=== PATIENT | female | born 1935 | race Caucasian/White ===

== ENCOUNTER 2017-01-08 06:51 | Day surgery (SDC) | payer MEDICARE, OTHER ==
[~2017-01-08 06:51] MED LIST: RINGER'S SOLUTION,LACTATED 1,000 ML IV PRN; ceFAZolin SODIUM 1 GM in DEXTROSE 5 % IN WATER 100 ML IV PRN
[2017-01-08] MEDS ORDERED: RINGER'S SOLUTION,LACTATED 1,000 ML IV ONE ×2 (07:41→09:35)
[2017-01-08] MEDS ORDERED: LIDOCAINE HCL/EPINEPHRINE 50 ML VIAL IJ ONE ×2 (08:35)
--- NOTE | 2017-01-08 12:10 | OR ---
Operative Report - Dictated Report Narrative: DATE OF PROCEDURE: 01/08/2017 INDICATION: 81-year-old old with prior hysterectomy and suburethral sling placement presents with severe post hysterectomy vaginal vault prolapse, cystocele, and rectocele PREOPERATIVE DIAGNOSIS: Symptomatic post hysterectomy vaginal vault prolapse, severe cystocele, rectocele POSTOPERATIVE DIAGNOSIS: Same PROCEDURE: Anterior and posterior colpoperineorrhaphy, bilateral uterosacral ligament fixation, cystoscopy SURGEON: Nancy Betancourt D.O. HEALTHCARE MANAGER: OR staff ANESTHESIA: General ESTIMATED BLOOD LOSS: 50 mL URINE OUTPUT: 100 mL FLUID REPLACEMENT: 1400 mL FINDINGS: Vaginal apex prolapsed custodial to the introitus, cystocele protruding 3 cm past the introitus, rectocele 2 cm from the introitus, lax perineal body. Multiple 1-2 mm white papular lesions within the bladder scattered on the posterior wall. Extensive trabeculation of the anterior bladder wall. SPECIMEN(S): None TECHNIQUE: The patient was taken to the operating room and placed in dorsal lithotomy position after adequate general anesthesia and sterile prep were performed. 1 g of Ancef was given preoperatively. A Melcher Dallas retractor was placed over the perineum. The vaginal mucosa was grasped at the introitus at the 4 and 8 o'clock positions and a wolf-shaped resection of peritoneal and vaginal mucosa was removed. The vaginal mucosal was dissected from the underlying rectovaginal fascia to the vaginal apex and laterally to the levator ani lateral border on either side. The uterosacral ligaments were identified on either side and noted to be securely attached at their proximal origins. Using the Capio device, an 0 Prolene suture was placed through the proximal end of the right uterosacral ligament at the level of the ischial spine. The exact same was done on the patient's left side. The sutures were tagged and held for later use. The rectovaginal fascia was plicated in the midline with a running 0 Vicryl suture. Using the same suture, the perineal body was reapproximated. Excess vaginal mucosa was excised and attention was turned to the anterior segment. A Breen catheter was inserted to drain the bladder and to determine the level of the urethrovesical junction. The vaginal mucosa was grasped at the UV junction and at the vaginal apex. Scalpel was used to make a linear incision through the vaginal mucosa of the bladder. Using sharp and blunt dissection, the vaginal mucosa was dissected laterally from the underlying bladder. Using an 0 Vicryl suture, the bladder was plicated in midline with a running stitch. A second imbricating stitch was placed over the previous one from the UV junction to the vaginal apex. Excess vaginal mucosa was excised and the vaginal mucosa was closed with a running 2-0 Vicryl. Prior to closing the vaginal mucosa, the uterosacral ligament suture was placed through the intrafascial tissue of the anterior segment of the vaginal cuff. The vaginal mucosa of the posterior floor of the vagina was closed custodial with a running 2- 0 Vicryl suture. At this point the uterosacral ligament ollie stitches were tied, bringing the vaginal apex up to the level of the ischial spine. The sutures were cut and the remainder of the vaginal mucosa on the posterior floor was closed. The bladder was drained and the Breen catheter was removed. Cystoscopy was performed, noting urine spurting freely from both ureteral orifices. Sponge, lap, instrument, and needle count were correct x 2. DISPOSITION: The patient was transferred to postanesthesia care unit in good condition.
[2017-01-08] MEDS ORDERED: MORPHINE SULFATE 2 MG/ML DISP.SYRIN IV PRN (13:08)
[2017-01-08] MEDS ORDERED: IBUPROFEN 800 MG TABLET PO PRN (13:09)
[2017-01-08 17:13] VITALS: BP 162/71
== END 2017-01-08 06:52 | disposition home or self-care (01) ==
LOC: AMB 06:51
PROVIDERS: ATTEND Obstetrics & Gynecology
PROC: 0WQ Anatomical Regions, General, Repair (ICD-10-PCS; 2017-01-08)
PROC: 0JQC0ZZ Repair Pelvic Region Subcutaneous Tissue and Fascia, Open Approach (ICD-10-PCS; principal; 2017-01-08 08:00)
PROC: 0JQC0ZZ Repair Pelvic Region Subcutaneous Tissue and Fascia, Open Approach (ICD-10-PCS; 2017-01-08 08:00)
DX: N99.3 Prolapse of vaginal vault after hysterectomy (principal); I10 Essential (primary) hypertension; E78.5 Hyperlipidemia, unspecified; E03.9 Hypothyroidism, unspecified; Z68.25 Body mass index [BMI] 25.0-25.9, adult

== ENCOUNTER 2017-04-16 11:04 | Day surgery (SDC) | payer MEDICARE, OTHER ==
--- NOTE | 2017-04-16 13:17 | OR ---
Operative Report - Dictated Report Narrative: Location: Main OR Anesthesia: None Preoperative Diagnosis: Previously seen bladder lesions during female organs surgery Postoperative Diagnosis: Trabeculated bladder, no abnormal lesions Procedure: #1 flexible cystoscopy with washing for cytology and micro-/culture Indications: 82-year-old female whom underwent gynecologic procedure and account clerk performed cystoscopy at the time. There was a picture of some lesions in the bladder did not look overly concerning but obviously on the 2-D picture no way to know. Presents today after urinalysis was evaluated and normal and elected to proceed with repeat flexible cystoscopy in order for me to assess lesions make sure not concerning and not worthy of biopsy. Description: Consent obtained. Placed in the frog-leg position. Prepped and draped. Time-out taken . Scope inserted into the urethra and navigated to the bladder with ease. Cystoscopy revealed a fairly heavily trabeculated bladder for female but complete emptying. Bladder was filled nath cystoscopy carried out without tumor stones or suspicious lesions. The lesions seen on prior 2-D picture were not present today. Both ureters were in normal location effluxing clear urine. Washing was obtained sent for cytology and micro-/culture. Retroflexion revealed a normal bladder neck without any lesions at the bladder neck. Urethra coapted well and no urethral abnormalities. EBL: 0 Specimen: Washing for cytology and micro-/culture Condition: tolerate procedure Important Findings: Other than bladder trabeculation no concerning lesions. She does have some overactivity but it is tolerable. FOLLOW UP: 12 months with UA/ultrasound/BMP. Sooner if trouble. We'll follow -up on urinalysis and cytology and if normal should be good to go. If any abnormalities may need change game plan
[2017-04-16 13:42] VITALS: BP 120/74
== END 2017-04-16 11:05 | disposition home or self-care (01) ==
LOC: AMB 11:04
PROVIDERS: ATTEND Urology
PROC: 3E1K88X Irrigation of Genitourinary Tract using Irrigating Substance, Via Natural or Artificial Opening Endoscopic, Diagnostic (ICD-10-PCS; 2017-04-16)
PROC: 0TJB8ZZ Inspection of Bladder, Via Natural or Artificial Opening Endoscopic (ICD-10-PCS; principal; 2017-04-16 14:15)
DX: D49.4 Neoplasm of unspecified behavior of bladder (principal); N39.3 Stress incontinence (female) (male); I10 Essential (primary) hypertension; E78.5 Hyperlipidemia, unspecified; E03.9 Hypothyroidism, unspecified; D64.9 Anemia, unspecified; Z68.23 Body mass index [BMI] 23.0-23.9, adult

== ENCOUNTER 2020-01-04 04:43 | Inpatient (IN) ==
--- NOTE | 2020-01-04 04:54 | ERNOTE ---
Hip Pain HPI - Narrative Narrative: Patient got up to go to the bathroom she reached to push the door and missed falling onto her left hip. Her was able to get her up onto a chair but she is unable to fully bear weight on the left side. She was brought in by EMS they state they found that her O2 sats were 88% on room air so they applied 2 L per nasal cannula. In route they gave her 30 of Toradol and 50 mcg of fentanyl IV. - General Time Seen by Provider: 01/04/20 04:47 Source: patient Exam Limitations: no limitations - History of Present Illness Initial Comments: Past medical history: Rheumatoid arthritis, hypertension, hyperlipidemia, breast cancer, hypothyroid. Past surgical history: Mastectomy, hysterectomy, total knee replacement bilateral Timing/Duration: just prior to arrival Severity: moderate Hip Pain Location: hip (L) Method of Injury/Prior Injury: fell Modifying Factors - (Improves): Reports: immobilization Modifying Factors - (Worsens): Reports: movement Associated Symptoms: denies symptoms - Immun/Allergies/Home Medications Immunization: IMMUNIZATION HX Immunizations Up to Date Yes History of Influenza Vaccine Yes Hx Pneumococcal Vaccination Yes Allergies/Adverse Reactions: Allergies Allergy/AdvReac Type Severity Reaction Status Date / Time No Known Allergies Allergy Verified 12/30/19 13:56 Home Medications: Ambulatory Orders Medication Instructions Recorded folic acid 1 mg tablet 1 mg PO DAILY #90 tab 01/30/18 methotrexate sodium 2.5 mg tablet 7.5 mg PO Q7D tab 04/27/18 felodipine 10 mg tablet,extended 10 mg PO DAILY #90 tab 12/13/19 release 24 hr fenofibrate nanocrystallized 145 145 mg PO DAILY #90 tab 12/13/19 mg tablet levothyroxine 50 mcg tablet 50 mcg PO DAILY #90 tab 12/13/19 lisinopril 10 mg tablet 10 mg PO DAILY #90 tab 12/13/19 Review of Systems - Review of Systems Constitutional: Absent: diaphoresis, fatigue, fever EENTM: Absent: nose congestion, sore throat Respiratory: Absent: short of breath Cardiology: Absent: chest pain Gastrointestinal/Abdominal: Absent: abdominal pain, diarrhea, nausea, vomiting Genitourinary: Absent: dysuria Musculoskeletal: Absent: back pain Skin: Absent: change in color, rash Neurological: Absent: dizziness/light-headness, headache Endocrine: Absent: excessive sweating Pain Exam - Physical Exam General Appearance: Present: WD/WN, no apparent distress Eyes, Ears, Nose, Throat Exam: Present: normal ENT inspection Neck Exam: Present: non-tender, full range of motion Cardiovascular/Respiratory: Present: regular rate, rhythm, no M/R/G Gastrointestinal/Abdominal: Present: normal bowel sounds, non tender Extremity Exam: Present: pelvis stable, bony-point tenderness - Left greater trochanter, pain with movement - Left hip, unable to bear weight, other - Good pedal pulses in left leg Neurologic: Present: gimp tacker II-XII nml as tested, no motor/sensory deficits Skin Exam: Present: normal color, warm/dry ED Progress - PROGRESS/REASSESSMENT Progress Note-Subjective: 01/04/20 06:[address] Chaves and after an additional view of the hip he agreed to have the patient admitted to medicine and consult him for surgical intervention. I spoke with Dr. Camacho, the patient's PCP, she agrees to admit the patient for surgical clearance. - VITAL SIGNS Patient's Vital Signs:: I have reviewed the patient's vital signs. - RESULTS AND ORDERS Patient's Lab Results:: I have reviewed the patient's lab results. Results and Orders: 01/04/20 05:53 Laboratory Tests 01/04/20 05:35 WBC 10.7 H Hgb 12.1 L Hct 37.1 Plt Count 359 01/04/20 07:01 Laboratory Tests 01/04/20 05:35 Sodium 140 Potassium 3.8 Chloride 107 H BUN 22 Creatinine 1.01 Est GFR (Non-Af Amer) 56 L D Random Glucose 145 H Calcium 9.9 Total Bilirubin 0.3 AST 25 ALT 35 - EKG EKG #1 EKG: NSR, RBBB, nonspecific ST T wave chg, other - minimal changes from 12/20/16 EKG Read: Interp. by me - X-Ray X-Ray #1 XRAY: hip X-Ray Interpretation: Interp. by me X-Ray Comments: Mildly displaced intertrochanteric fracture of the left hip. Moderate degeneration of the hip joint X-Ray #2 XRAY: chest X-Ray Interpretation: Interp. by me X-Ray Comments: No infiltrate or effusions. Cardiac silhouette appears normal. Bony elements intact. No pneumothorax X-Ray #3 XRAY: hip X-Ray Interpretation: Interp. by me X-Ray Comments: Dr. Chaves requested a AP with traction due to the significant external rotation the patient was holding the hip in. AP view with slight traction shows a comminuted surgical neck fracture Departure - Departure Clinical Impression: Hip fracture, left Qualifiers: Encounter type: initial encounter Fracture type: closed Qualified Code(s): S72.002A - Fracture of unspecified part of neck of left femur, initial encounter for closed fracture Disposition: Still a patient Condition: Good Past Medical History - PMH PMH: Hx Anesthesia Reactions No
[2020-01-04 05:39] LABS: Hematocrit 37.1 % (37.0-47.0); Hemoglobin 12.1 gm/dL (12.5-16.0); Mean Cell Volume 95.9 fl (78-100); Mean Corpuscular Hemoglobin 31.3 pg (27-31); Mean Corpuscular Hgb Conc 32.6 g/dl (32-36); Neutrophil # 7.9 K/mm3 (1.3-6.0); Neutrophil % 74.1 % (42-75.0); Platelet Count 359 K/mm3 (150-450); Red Blood Count 3.87 M/mm3 (4.2-5.4); Red Cell Distribution Width 13.4 % (11.5-14.0); White Blood Count 10.7 K/mm3 (4.0-10.5)
[2020-01-04] MEDS ORDERED: ONDANSETRON HCL/PF 2 MG/ML VIAL IV ONE (05:42)
[2020-01-04] MEDS ORDERED: MORPHINE SULFATE 2 MG/ML DISP.SYRIN IV ONE ×2 (05:42→06:27)
[2020-01-04 05:53] LABS: Albumin * 3.7 gm/dl (3.4-5.0); Anion Gap 12.2 mmol/L (6.8-13.8); BUN/Creatinine Ratio 21.8 (9.0-21.6); Bilirubin, Total 0.3 mg/dL (0.0-1.1); Ca. Corrected For Albumin 9.8 mg/dL (8.4-10.2); Calcium * 9.9 mg/dL (7.9-10.9); Carbon Dioxide 24.6 mmol/L (24-32.6); Potassium 3.8 mmol/L (3.4-4.6); Total Protein 6.9 gm/dL (6.2-8.2)
[2020-01-04] MEDS ORDERED: TRANEXAMIC ACID 1,000 MG in NORMAL SALINE 100 ML IV PRN (06:00)
[2020-01-04] MEDS ORDERED: ROPIVACAINE HCL/PF 100 MG, EPINEPHrine 0.2 MG, KETOROLAC TROMETHAMINE 15 MG in NORMAL S... IJ PRN (06:00)
--- NOTE | 2020-01-04 08:25 | CONS ---
- Reason for consultation (1) Hip fracture, left Date of Service: 01/04/20 HPI - General Date of Service: 01/04/20 Narrative: 84-year-old female had a mechanical fall overnight in her home. Patient notes she is a baseline walker with assistance with a cane or walker. She rates her pain at minimal at rest, 7/10 when moving. Patient notes she was brought to the ER she lives with her at home. She notes no other significant radiating factors. She notes no loss of consciousness. She notes she did not hit her head. Is not on any significant blood thinners. She denies any other significant concerns currently. Source: patient - History of Present Illness Allergies/Adverse Reactions: Allergies No Known Allergies Allergy (Verified 12/30/19 13:56) Home Medications: Home Medications Medication Instructions Recorded Last Taken folic acid 1 mg tablet 1 mg PO DAILY #90 tab 01/30/18 Unknown methotrexate sodium 2.5 mg tablet 7.5 mg PO Q7D tab 04/27/18 Unknown felodipine 10 mg tablet,extended 10 mg PO DAILY #90 tab 12/13/19 Unknown release 24 hr fenofibrate nanocrystallized 145 145 mg PO DAILY #90 tab 12/13/19 Unknown mg tablet levothyroxine 50 mcg tablet 50 mcg PO DAILY #90 tab 12/13/19 Unknown lisinopril 10 mg tablet 10 mg PO DAILY #90 tab 12/13/19 Unknown Procedures CATARAC PHACOEMULS/ASPIR (11/28/09) Colonoscopy (05/29/04) INSERT LENS AT CATAR EXT (11/28/09) Inspection of Bladder, Via Natural or Artificial Opening Endoscopic (04/16/17) Irrigation of Genitourinary Tract using Irrigating Substance, Via Natural or Artificial Opening Endoscopic, Diagnostic (04/16/17) Other (04/02/07) Repair Female Perineum, Percutaneous Approach (01/08/17) Repair Pelvic Region Subcutaneous Tissue and Fascia, Open Approach (01/08/17) Ultrasonography of Bladder (03/01/16) Vaginal suspension and fixation (04/02/07) Physical Examination - Exam Vital Signs: Vital Signs - Last Taken Temp 36.7 C 01/04/20 05:18 Pulse 102 H 01/04/20 07:25 Resp 12 01/04/20 07:25 BP 170/73 H 01/04/20 07:25 Pulse Ox 93 01/04/20 07:25 O2 Oxygen Delivery Method Room Air Constitutional: Present: Alert, Oriented x3, Cooperative, No distress Respiratory: Present: no accessory muscle use Extremity: Present: other - LLE--> sensation intact light touch, 4+ plantarflexion dorsiflexion ankle, diffuse tenderness about left hip, no obvious wounds, external rotation deformity, distal capillary refill Skin Exam: Present: normal color, warm/dry Neurologic: Present: normal mood/affect Appearance: Present: appropriate appearance Eye contact: Present: cooperative, good eye contact Thoughts: Present: normal thought pattern - Results and Findings: Lab/Microbiology results last 24 hrs: Abnormal/Pending Laboratory Last 24 HRS 01/04/20 01/04/20 05:35 05:35 WBC 10.7 H RBC 3.87 L Hgb 12.1 L MCH 31.3 H Immature Gran % (Auto) 1.40 H Immature Gran # (Auto) 0.15 H Lymphocytes % 16.5 L Neutrophils # 7.9 H Chloride 107 H Est GFR (Non-Af Amer) 56 L D BUN/Creatinine Ratio 21.8 H Random Glucose 145 H - Assessments/Findings (1) Hip fracture, left Problem: Acute Qualifiers: Encounter type: initial encounter Fracture type: closed Qualified Code(s): S72.002A - Fracture of unspecified part of neck of left femur, initial encounter for closed fracture Plan - Plan Plan: -84 y/o female left femoral neck fracture that is post fall -Discussed with patient conservative or surgical intervention and possible risk versus benefits include but not limited to infection, bleeding, cardiac and stroke risk, implant failure, continued pain, ambulatory status, and inherent risk of surgery. Patient expressed understanding due to her baseline activity level she wishes to proceed with surgical intervention. Patient will undergo a left hip hemiarthroplasty pending medicine clearance. Plan would be to proceed with surgery on 01/04/2020, and less otherwise patient has not been cleared. Patient expressed understanding consent was obtained patient was marked prior to surgical intervention. Patient will continue in the hospital for postoper atively for care.
[2020-01-04] MEDS ORDERED: ACETAMINOPHEN 500 MG TABLET PO PRN ×2 (09:07→13:20)
[2020-01-04] MEDS: FELODIPINE 5 MG TAB.SR.24H PO SCH (09:15)
[2020-01-04] MEDS: PANTOPRAZOLE SODIUM 40 MG in NORMAL SALINE 100 ML IV SCH ×2 (09:15→21:22)
[2020-01-04] MEDS: FENOFIBRATE,MICRONIZED 134 MG CAPSULE PO SCH (09:15)
[2020-01-04] MEDS: LEVOTHYROXINE SODIUM 50 MCG TABLET PO SCH (09:15)
[2020-01-04] MEDS: LISINOPRIL 10 MG TABLET PO SCH (09:15)
[2020-01-04] MEDS: FOLIC ACID 1 MG TABLET PO SCH (09:15)
--- NOTE | 2020-01-04 09:26 | ANES ---
Anesthesia Pre Procedure Eval Vitals/Labs: Last Vital Signs Temp 36.3 C 01/04/20 08:43 Pulse 104 H 01/04/20 08:43 Resp 16 01/04/20 08:43 BP 131/70 01/04/20 08:43 Pulse Ox 93 01/04/20 08:43 HOME MEDICATIONS folic acid 1 mg tablet 1 mg PO DAILY #90 tab 01/30/18 [Last Taken Unknown] methotrexate sodium 2.5 mg tablet 7.5 mg PO Q7D tab 04/27/18 [Last Taken Unknown] felodipine 10 mg tablet,extended release 24 hr 10 mg PO DAILY #90 tab 12/13/19 [Last Taken Unknown] fenofibrate nanocrystallized 145 mg tablet 145 mg PO DAILY #90 tab 12/13/19 [Last Taken Unknown] levothyroxine 50 mcg tablet 50 mcg PO DAILY #90 tab 12/13/19 [Last Taken Unknown] lisinopril 10 mg tablet 10 mg PO DAILY #90 tab 12/13/19 [Last Taken Unknown] Allergies/Adverse Reactions: Allergies Allergy/AdvReac Type Severity Reaction Status Date / Time No Known Allergies Allergy Verified 12/30/19 13:56 - Planned Procedure Planned Procedure: l hip fx Medication List Reviewed:: Yes Allergies Verified: Yes Medical History (Last Reviewed 01/04/20 @ 09:11 by Fred Tripp CRNA) Arthritis Back pain Onset Date: ~03/05/12 Cystocele Onset Date: ~02/2007 midline Goiter multi-nodular H/O cataract Hip pain, left Onset Date: Unknown History of breast cancer Onset Date: ~1971 Hyperlipidemia Hypertension Hypothyroidism Onset Date: ~03/05/12 Joint pain Macular degeneration Nocturia more than twice per night Onset Date: ~10/31/15 Osteoarthritis Onset Date: ~03/05/12 Overactive bladder Onset Date: ~10/31/15 Prolapsed bladder Rheumatoid arthritis Trochanteric bursitis of left hip Onset Date: Unknown Uterine prolapse Vaginal prolapse Onset Date: ~2004 Vaginal vault prolapse, posthysterectomy Onset Date: ~12/02/16 Surgical History (Last Reviewed 01/04/20 @ 09:11 by Fred Tripp CRNA) Deficient knowledge of combined anteroposterior colporrhaphy Onset Date: ~04/02/072006 anterior and 01/08/2017 anterior and posterior H/O breast biopsy Onset Date: ~1997 right breast H/O cataract extraction Onset Date: ~10/31/09 left and 11/28/09 right H/O colonoscopy Onset Date: ~05/29/04 Dr. Wells: normal H/O cystoscopy Onset Date: ~01/08/17 H/O total vaginal hysterectomy Onset Date: ~1986 prolapsed uterus Hemorrhoids Onset Date: ~02/01/09 banding: Bagan x's 2 History of arthroplasty of left knee Onset Date: ~2009 Dr. Fletcher History of arthroplasty of right knee Onset Date: ~2010 Dr. Fletcher History of mastectomy Onset Date: ~1971 1987 History of suburethral sling procedure Onset Date: ~04/02/07 Dr. Betancourt: Bard suburethral utero sacral ligament fixation Onset Date: ~04/02/07 01/08/17 bilateral Family History (Last Reviewed 01/04/20 @ 09:12 by Fred Tripp CRNA) Brother Alive and well Brother , age 79 Diabetes Myocardial infarction Father , age 85 Heart disease Hypertension Mother , age 94 Heart disease - Family Anesthesia History Family History:: no untoward family reactions to anesthesia, no familial bleeding tendencies, no family history of clotting disorders, no family history of premature - Airway/Neck/Teeth Teeth Condition: missing, poor condition Neck Exam: full range of motion Mallampatti Score: 2 Thyromental (T-M) distance: > 6 cm Mandibulo Hyoid distance: > 3 cm - Respiratory Respiratory Physical: lungs clear Smoking Status: Never smoker Sleep Apnea currently treated: No Sleep Apnea by current assessment: No - Cardiovascular Cardiac History: hypertension Tolerate Activity: Poor Heart Sounds: S1 & S2, Regular, Murmur - Pulmonic and mitral areas - Gastrointestinal NPO since: 2399 - Anesthesia Assessment and Plan Narrative: Discussed DNR with patient. If new episode of what appears to be temporary c ondition presents, suspend DNR for surgery only. ASA Class: PS, III Anesthesia Type Plan: Spinal
--- NOTE | 2020-01-04 09:29 | HP ---
Chief Complaint - Chief Complaint Date of Service: 01/04/20 Time of Service: 09:17 Chief Complaint: I have left hip pain from my fall. History of Present Illness: 84-year-old female with past medical history of osteoarthritis, rheumatoid arthritis, hypertension, hyperlipidemia, breast cancer, overactive bladder, was evaluated in the ER after she was brought in by EMS after she sustained a fall in her home this morning at 4 AM. The patient reports while attempting to go to the bathroom she lost her balance and fell onto her left side, she denies hitting her head or LOC. The patient denies any dizziness or any other neurological symptoms or could have led to her fall but admits that chronically she has problems with balance. The patient normally ambulates with a walker which she was not using during the fall. After falling the patient was lifted off the floor by her who set her up in a chair however attempts to bear weight onto the left side failed raising the suspicion of a hip fracture. Once in the ER the patient was administered pain medications and was placed on oxygen due to a mildly decreased oxygen saturation and underwent imaging that confirmed a left femoral neck fracture. She was evaluated by Ortho who recommended a left-sided hemiarthroplasty to repair the fracture after the patient is medically cleared. The patient reports being in her normal state of health before this occurred and denies any recent changes or new symptoms. Medical History (Last Reviewed 01/04/20 @ 09:11 by Fred Tripp CRNA) Arthritis Back pain Onset Date: ~03/05/12 Cystocele Onset Date: ~02/2007 midline Goiter multi-nodular H/O cataract Hip pain, left Onset Date: Unknown History of breast cancer Onset Date: ~1971 Hyperlipidemia Hypertension Hypothyroidism Onset Date: ~03/05/12 Joint pain Macular degeneration Nocturia more than twice per night Onset Date: ~10/31/15 Osteoarthritis Onset Date: ~03/05/12 Overactive bladder Onset Date: ~10/31/15 Prolapsed bladder Rheumatoid arthritis Trochanteric bursitis of left hip Onset Date: Unknown Uterine prolapse Vaginal prolapse Onset Date: ~2004 Vaginal vault prolapse, posthysterectomy Onset Date: ~12/02/16 Surgical History: Surgical History (Last Reviewed 01/04/20 @ 09:11 by Fred Tripp CRNA) Deficient knowledge of combined anteroposterior colporrhaphy Onset Date: ~04/02/072006 anterior and 01/08/2017 anterior and posterior H/O breast biopsy Onset Date: ~1997 right breast H/O cataract extraction Onset Date: ~10/31/09 left and 11/28/09 right H/O colonoscopy Onset Date: ~05/29/04 Dr. Wells: normal H/O cystoscopy Onset Date: ~01/08/17 H/O total vaginal hysterectomy Onset Date: ~1986 prolapsed uterus Hemorrhoids Onset Date: ~02/01/09 banding: [place] x's 2 History of arthroplasty of left knee Onset Date: ~2009 Dr. Fletcher History of arthroplasty of right knee Onset Date: ~2010 Dr. Fletcher History of mastectomy Onset Date: ~1971 1987 History of suburethral sling procedure Onset Date: ~04/02/07 Dr. Betancourt: [place] suburethral utero sacral ligament fixation Onset Date: ~04/02/07 01/08/17 bilateral Family History: Family History (Last Reviewed 01/04/20 @ 09:12 by Fred Tripp CRNA) Brother Alive and well Brother , age 79 Diabetes Myocardial infarction Father , age 85 Heart disease Hypertension Mother , age 94 Heart disease Social History: (Last Reviewed 01/04/20 @ 08:47 by Kassandra Shore RN) Social History: Marital status: household members: spouse current occupational status: retired Highest education level completed: high school graduate Service: No Tobacco: Smoking Status: Never smoker Alcohol: alcohol intake: never Substance Use: substance use type: does not use Dietary Habits: caffeine: Yes Type: coffee Personal Safety: victim of physical abuse: No victim of emotional abuse: No Peds Patient Hx - Developmental: No Pertinent Hx Peds Patient Hx - Medical: No Pertinent Hx Peds Patient Hx - Cardiac/Respiratory: No Pertinent Hx Peds Patient Hx - Surgical: No Surgical History Patient History - Cancer: No Hx of Cancer Review Of Systems (GEN) - Review of Systems Generalized/Overall Review: Present: No Symptoms Reported EENTM: Present: No Symptoms Reported Respiratory: Present: No Symptoms Reported Cardiac: Present: No Symptoms Reported Abdominal: Present: No Symptoms Reported Genitourinary: Present: No Symptoms Reported Musculoskeletal: Present: Joint Pain - Left hip pain, Other - Inability to bear weight on left side Neurological: Present: No Symptoms Reported Skin: Present: No Symptoms Reported Endocrine: Present: No Symptoms Reported Immunizations: IMMUNIZATION HX Immunizations Up to Date Yes History of Influenza Vaccine Yes Hx Pneumococcal Vaccination Yes Allergies/Adverse Reactions: Allergies Allergy/AdvReac Type Severity Reaction Status Date / Time No Known Allergies Allergy Verified 12/30/19 13:56 Home Medications: HOME MEDICATIONS folic acid 1 mg tablet 1 mg PO DAILY #90 tab 01/30/18 [Last Taken Unknown] methotrexate sodium 2.5 mg tablet 7.5 mg PO Q7D tab 04/27/18 [Last Taken Unknown] felodipine 10 mg tablet,extended release 24 hr 10 mg PO DAILY #90 tab 12/13/19 [Last Taken Unknown] fenofibrate nanocrystallized 145 mg tablet 145 mg PO DAILY #90 tab 12/13/19 [Last Taken Unknown] levothyroxine 50 mcg tablet 50 mcg PO DAILY #90 tab 12/13/19 [Last Taken Unknown] lisinopril 10 mg tablet 10 mg PO DAILY #90 tab 12/13/19 [Last Taken Unknown] Exam - Exam Vital Signs: Vital Signs - Last Taken Temp 36.3 C 01/04/20 08:43 Pulse 104 H 01/04/20 08:43 Resp 16 01/04/20 08:43 BP 131/70 01/04/20 08:43 Pulse Ox 93 01/04/20 08:43 Constitutional: Present: Alert, Oriented x3, Cooperative, Well developed, Well nourished, No distress, Elderly ENT Exam: Present: normal ENT inspection, hearing grossly normal, pharynx normal, TMs normal Eye Exam: bilateral eye: normal inspection, PERRL, EOMI Neck: Present: non-tender, full range of motion, supple, normal inspection, trachea midline Back Exam: Present: normal inspection Breasts: Present: Exam deferred Respiratory: Present: chest non-tender, lungs clear, normal breath sounds, no respiratory distress, no accessory muscle use Cardiovascular/Chest: Present: normal peripheral pulses, regular rate, rhythm, no chest tenderness, no edema, no gallop, no JVD, no murmur, no rub Peripheral Pulses: carotid (R): 3+, carotid (L): 3+, femoral (R): 3+, femoral (L): 3+, dorsalis-pedis (R): 3+, dorsalis-pedis (L): 3+ Abdomen: Present: Normal bowel sounds, soft, nontender, nondistended, no rebound tenderness, no hepatospenomegaly, no masses /Rectal: Present: Exam deferred Extremity: Present: no pedal edema, no calf tenderness, normal capillary refill, leg pain, other - Left hip edema and tenderness. [place]-neck deformity of several digits due to rheumatoid arthritis. Skin Exam: Present: normal color, warm/dry, no cyanosis Lymphatic: Present: no adenopathy Neurologic: Present: unix system administrator II-XII nml as tested, no motor/sensory deficits, alert, normal mood/affect, oriented x 3 Appearance: Present: appropriate appearance, appropriate insight, neat, no memory impairment Eye contact: Present: cooperative, good eye contact, normal speech Thoughts: Present: normal thought pattern, no apparent hallucination Diagnostic Studies: Abnormal Lab Results 01/04/20 01/04/20 Range/Units 05:35 05:35 WBC 10.7 H (4.0-10.5) K/mm3 RBC 3.87 L (4.2-5.4) M/mm3 Hgb 12.1 L (12.5-16.0) gm/dL MCH 31.3 H (27-31) pg Immature Gran % (Auto) 1.40 H (0.001-0.429) % Immature Gran # (Auto) 0.15 H (0.000-0.0310) K/mm3 Lymphocytes % 16.5 L (20-51) % Neutrophils # 7.9 H (1.3-6.0) K/mm3 Chloride 107 H (97-106) mmol/L Est GFR (Non-Af Amer) 56 L D (60-130) mL/min BUN/Creatinine Ratio 21.8 H (9.0-21.6) Random Glucose 145 H (70-110) mg/dL Laboratory Results WBC 10.7 K/mm3 (4.0-10.5) H 01/04/20 05:35 RBC 3.87 M/mm3 (4.2-5.4) L 01/04/20 05:35 Hgb 12.1 gm/dL (12.5-16.0) L 01/04/20 05:35 Hct 37.1 % (37.0-47.0) 01/04/20 05:35 MCV 95.9 fl (78-100) 01/04/20 05:35 MCH 31.3 pg (27-31) H 01/04/20 05:35 MCHC 32.6 g/dl (32-36) 01/04/20 05:35 RDW 13.4 % (11.5-14.0) 01/04/20 05:35 Plt Count 359 K/mm3 (150-450) 01/04/20 05:35 MPV 10.0 fl (8-12.5) 01/04/20 05:35 Immature Gran % (Auto) 1.40 % (0.001-0.429) H 01/04/20 05:35 Immature Gran # (Auto) 0.15 K/mm3 (0.000-0.0310) H 01/04/20 05:35 Neutrophils % 74.1 % (42-75.0) 01/04/20 05:35 Lymphocytes % 16.5 % (20-51) L 01/04/20 05:35 Monocytes % 6.7 % (0.0-9) 01/04/20 05:35 Eosinophils % 1.0 % (0.0-3.0) 01/04/20 05:35 Basophils % 0.3 % (0.0-1.0) 01/04/20 05:35 Nucleated RBC % 0.0 k/mm3 (0-1) 01/04/20 05:35 Neutrophils # 7.9 K/mm3 (1.3-6.0) H 01/04/20 05:35 Lymphocytes # 1.77 k/mm3 (1.5-3.5) 01/04/20 05:35 Monocytes # 0.7 k/mm3 (0.0-1.0) 01/04/20 05:35 Eosinophils # 0.1 k/mm3 (0.0-0.7) 01/04/20 05:35 Absolute Basophils 0.0 k/mm3 (0.0-0.1) 01/04/20 05:35 Sodium 140 mmol/L (132-142) 01/04/20 05:35 Plasma Sodium 141 mmol/L (130-142) 01/04/20 05:35 Potassium 3.8 mmol/L (3.4-4.6) 01/04/20 05:35 Chloride 107 mmol/L (97-106) H 01/04/20 05:35 Carbon Dioxide 24.6 mmol/L (24-32.6) 01/04/20 05:35 Anion Gap 12.2 mmol/L (6.8-13.8) 01/04/20 05:35 BUN 22 mg/dL (3-23) 01/04/20 05:35 Creatinine 1.01 mg/dL (0.4-1.4) 01/04/20 05:35 Est GFR (Non-Af Amer) 56 mL/min (60-130) L D 01/04/20 05:35 BUN/Creatinine Ratio 21.8 (9.0-21.6) H 01/04/20 05:35 Random Glucose 145 mg/dL (70-110) H 01/04/20 05:35 Calcium 9.9 mg/dL (7.9-10.9) 01/04/20 05:35 Calcium Adj for Albumin 9.8 mg/dL (8.4-10.2) 01/04/20 05:35 Total Bilirubin 0.3 mg/dL (0.0-1.1) 01/04/20 05:35 AST 25 U/L (0-48) 01/04/20 05:35 ALT 35 U/L (19-67) 01/04/20 05:35 Alkaline Phosphatase 61 U/L (50-170) 01/04/20 05:35 Total Protein 6.9 gm/dL (6.2-8.2) 01/04/20 05:35 Albumin 3.7 gm/dl (3.4-5.0) 01/04/20 05:35 SARS-CoV-2 (PCR) Not detected (ND) 01/04/20 06:57 Assessment/Plan - Narrative Narrative: Patient was evaluated medical chart was reviewed and decision to admit her to [facility] for medical clearance was made. Patient is resting comfortably at the moment and she reports adequate control of her pain. She maintained stable vitals and aside from her left hip fracture does not present any other acute physical findings. The patient is oriented x3 and is in a pleasant mood and was able to provide a thorough history of what happened. Physical exam of her lower extremities confirmed a possible left hip fracture. Evaluation of the patient's labs done in the ER revealed adequate levels of hemoglobin however her GFR is below her baseline, upon questioning the patient does admit to inadequate intake of water because she does not like to drink water. She was counseled on the importance of adequate fluid intake to preserve renal function and to avoid dehydration. We will administer IV hydration for optimal renal function during the preop and postop. No other concerns were found. After evaluating the patient she was medically cleared for her surgery which is scheduled for sometime this morning. - Assessment/Plan (1) Left displaced femoral neck fracture Problem: Acute (2) Hip fracture, left Problem: Acute Qualifiers: Encounter type: initial encounter Fracture type: closed Qualified Code(s): S72.002A - Fracture of unspecified part of neck of left femur, initial encounter for closed fracture (3) Hypothyroidism Problem: Chronic Qualifiers: Hypothyroidism type: acquired Qualified Code(s): E03.9 - Hypothyroidism, unspecified (4) Hypertension Problem: Chronic Qualifiers: Hypertension type: essential hypertension Qualified Code(s): I10 - Essential (primary) hypertension (5) Rheumatoid arthritis Problem: Chronic Qualifiers: Rheumatoid arthritis location: multiple sites Rheumatoid factor presence: unspecified presence Qualified Code(s): M06.9 - Rheumatoid arthritis, unspecified (6) Status post total knee replacement, bilateral Problem: Chronic (7) Macular degeneration, bilateral Problem: Chronic Qualifiers: Macular degeneration type: unspecified type Qualified Code(s): H35.30 - Unspecified macular degeneration
[2020-01-04] MEDS: RINGER'S SOLUTION,LACTATED 1,000 ML IV PRN ×2 (09:38→11:50)
[2020-01-04] MEDS ORDERED: MIDAZOLAM HCL/PF 5 MG/ML VIAL ONE (10:42)
[2020-01-04] MEDS ORDERED: NORMAL SALINE 20 ML VIAL ONE (10:43)
[2020-01-04] MEDS ORDERED: BUPIVACAINE HCL/PF 10 ML VIAL ONE (10:43)
[2020-01-04] MEDS ORDERED: PROPOFOL VIAL IV ONE (10:43)
[2020-01-04] MEDS ORDERED: ceFAZolin SODIUM 1 GM VIAL ONE (10:44)
[2020-01-04] MEDS ORDERED: ISOPROPYL ALCOHOL 480 APPL BTL MC ONE (10:44)
[2020-01-04] MEDS ORDERED: MORPHINE SULFATE 2 MG/ML DISP.SYRIN IV PRN (13:20)
[2020-01-04] MEDS ORDERED: MAG HYDROX/ALUMINUM HYD/SIMETH 30 ML UDC PO PRN (13:20)
[2020-01-04] MEDS ORDERED: NORMAL SALINE 1,000 ML IV PRN (13:20)
[2020-01-04] MEDS ORDERED: ONDANSETRON HCL/PF 2 MG/ML VIAL IV PRN (13:20)
[2020-01-04] MEDS ORDERED: MAGNESIUM HYDROXIDE 30 ML UDC PO PRN (13:20)
[2020-01-04] MEDS ORDERED: HYDROcodone/ACETAMINOPHEN 1 EACH TABLET PO PRN (13:20)
--- NOTE | 2020-01-04 13:20 | OR ---
Operative Report - Dictated Report Narrative: Date: 01/04/2020 Preoperative diagnosis: Displaced left femoral neck fracture Postoperative diagnosis: Displaced left femoral neck fracture Procedure: Left hip uncemented emani-arthroplasty Surgeon: Jose F Oakes M.D. Retail Support Manager: Florentino Reeves PA-C provided a set of essential, skilled, educated hands that assisted in positioning, transfer, retraction, manipulation, irrigation, closure of wounds, and placement of dressings all of which could not be provided by the available surgical crew. Anesthesia: Spinal. Complications: None Specimens: Bone for disposal. Estimated blood loss: 100 mL Retained implants: Depuy Corail size 10 standard femoral stem. Size 46 mm ouside diameter self- centering bipolar head with + 1.5 mm cobalt chromium 28 mm femoral head. Indications: Morena is an 84 yo female who tripped and fell from standing height in her home and was unable to bear weight on her left leg. The patient was brought to the emergency department and work-up revealed a displaced femoral neck fracture. Orthopedics was consulted for management of her fracture. She had no other unstable medical conditions upon admission to the medicine service. I counseled the patient on treatment options and given her age, activity level, relatively good health, and fracture pattern, I recommended hemiarthroplasty. The risks and benefits were discussed with the patient as well as any power of research attorney. The risks, benefits, and alternatives discussed were , blood clots, bleeding, infection, nerve/tendon blood vessel/ injury, malposition of components, dislocation and/or instability of joint, intraoperative fracture, postoperative limited range of motion, persistent pain, failure of components, and need for additional procedures. She wished to proceed with surgical treatment. Consent was obtained after answering all questions. Procedure: After marking the correct extremity on the floor, the patient was taken to the operating room. A timeout was performed. IV antibiotics consisting of 1 g of Ancef were administered prior to the procedure. A spinal anesthetic was induced by anesthesia. The patient was then transitioned to a right lateral decubitus position on a well-padded pegboard and an axillary roll was placed. The head was in neutral position. The non-operative down leg was well-padded with SCD and SAAD hose in place. The arms were supported and padded to protect from any undue pressure on the bony prominences and nerves. Well-padded anterior and posterior pelvic and chest posts were secured in order to maintain a stable position of the pelvis. This was placed so that the pelvis was perpendicular to the floor. The body was in line with the pelvis. Once it was felt that we had protected all the bony prominences and the patient was well secured with a safety belt as well, the leg was pre-scrubbed with alcohol, prepped and draped in a standard sterile fashion. A standard anterior lateral hip incision was marked out over the greater trochanter. Ioban drapes were then placed. The skin incision was then made. Sharp dissection with a scalpel utilizing cautery for hemostasis was carried out down to the gluteus and iliotibial band fascia. This was split in line with the skin incision. The greater trochanter bursa was excised. The anterior and posterior margins of the abductor tendon were identified. The anterior 1/3 of the tendon was tagged and reflected off the greater trochanter leaving a sleeve of tendon for repair at the completion of the case. This exposed the underlying hip joint capsule. An inverted T-type capsulotomy was made extending this up to the brim of the acetabulum. We encountered a hematoma at this point confirming an acute fracture as well as noted displacement of the femoral neck fracture. Using Micah retractors to assist with elevation of the soft tissues off the anterior, superior, and inferior aspects of the femoral neck, the hip was then placed in a figure 4 position. With the leg in an externally rotated and adducted position, the cutting flag was utilized in order to lety for a low femoral neck cut approximately a fingerbreadth above the level of the lesser trochanter. This was done while protecting the surrounding soft tissues with Micah retractors. The femoral head was then removed and sized for guidance on the size of the bipolar head. This measured 46 mm. It was noted that there was no significant loss of articular cartilage on both the femoral head and weightbearing portions of the acetabulum. We then returned the leg to the table and turned our attention to the acetabulum. While protecting the surrounding soft tissues, the labrum and remaining tissue in the fovea were excised using a scalpel and cautery. This was then protected with a sponge while we returned our attention to the femur. With the leg in a figure 4 position utilizing Micah retractors for soft tissue protection, a box cutting osteotome, followed by Barby brower, followed by serial broaches were utilized in order to prepare the femur. It was found that a size 10 broach gave good axial and rotational stability. The proximal femur was visualized to ensure that there were no signs of fracture. A series of heads were trialed. It was found that a + 1.5 mm femoral head gave good overall stability. There is minimal longitudinal instability. With the leg in the position of sleep the femoral head was well covered. Hip range of motion was able to reach full extension and external rotation to greater than 75 degrees prior to impingement along the posterior acetabulum. The hip was able to be flexed to greater than 90 degrees with internal rotation greater than 60 degrees prior to anterior impingement. The limb lengths were near equal based on comparison to the contralateral side. At this point it was felt these were the appropriately sized femoral components as well as neck and femoral head. The trial implants were removed. The final femoral stem and bipolar head were then impacted in the place. The hip was then reduced and seated completely. Length and stability were double checked and looked good. The capsule was repaired with interrupted #1 Vicryl. The abductor tendon was repaired to the greater trochanter utilizing #5 Ethibond through bone tunnels. This was oversewn with #1 Vicryl. The fascia was closed with running barbed #1 PDS suture. The wounds were thoroughly irrigated as we closed in layers. The deep fat layers were closed with running barbed 0 PDS and the dermis was approximated with interrupted 3-0 Vicryl. The skin was closed with a running subcuticular 4-0 monocryl and and a Dermabond Prineo dressing was placed. All sponge, needle, blade, and instrument counts were correct prior to closing the wounds. Sterile dressings consisting of 4 x 4's, ABD, and tape were applied. The patient was awoken and transferred to her hospital bed and then to the postanesthesia care unit in stable condition. Postoperative condition: The plan is to return to the medical/surgical inpatient floor postoperatively. Postoperatively 24 hours of IV antibiotics, pain control, physical therapy, occupational therapy, and medical comanagement will be utilized. Patient will be weightbearing as tolerated with anterior hip precautions. Postoperative films will be obtained in the recovery room.
--- NOTE | 2020-01-04 13:23 | ANES ---
Post Anesthesia Discharge - Transfer of Care Transfer of Care handoff given to nurse: Yes - Discharge from PACU Discharge from PACU when meets criteria: Yes
--- NOTE | 2020-01-04 13:24 | ANES ---
Post Anesthesia Assessment - Vital Signs Vitals: Last Vital Signs Temp 36.4 C 01/04/20 13:15 Pulse 77 01/04/20 13:15 Resp 12 01/04/20 13:15 BP 122/59 01/04/20 13:15 Pulse Ox 95 01/04/20 13:15 Airway Patency: Normal - Mental Status Level Of Consciousness: Awake - Pain Level Pain Score: 0 - N/V Assessment Nausea/Vomiting Presence: None Dehydration:: No
[2020-01-04] MEDS: ceFAZolin SODIUM 1 GM in DEXTROSE 5 % IN WATER 100 ML IV SCH ×2 (17:50)
[2020-01-04] MEDS ORDERED: SENNOSIDES/DOCUSATE SODIUM 1 TAB TABLET PO SCH (21:00)
[2020-01-04] MEDS: DOCUSATE SODIUM 100 MG CAPSULE PO SCH (21:21)
[2020-01-04] MEDS: HYDROcodone/ACETAMINOPHEN 1 EACH TABLET PO PRN (23:15)
[2020-01-05] MEDS: ceFAZolin SODIUM 1 GM in DEXTROSE 5 % IN WATER 100 ML IV SCH ×4 (02:28→09:14)
[2020-01-05] MEDS: HYDROcodone/ACETAMINOPHEN 1 EACH TABLET PO PRN ×2 (05:33→12:28)
[2020-01-05] MEDS ORDERED: ceFAZolin SODIUM 1 GM VIAL IV PRN (06:00)
[2020-01-05] MEDS: LEVOTHYROXINE SODIUM 50 MCG TABLET PO SCH (06:21)
[2020-01-05 06:31] LABS: Hematocrit 31.7 % (37.0-47.0); Hemoglobin 10.2 gm/dL (12.5-16.0); Mean Cell Volume 96.9 fl (78-100); Mean Corpuscular Hemoglobin 31.2 pg (27-31); Mean Corpuscular Hgb Conc 32.2 g/dl (32-36); Mean Platelet Volume 9.8 fl (8-12.5); Platelet Count 286 K/mm3 (150-450); Red Blood Count 3.27 M/mm3 (4.2-5.4); Red Cell Distribution Width 13.5 % (11.5-14.0); White Blood Count 9.7 K/mm3 (4.0-10.5)
[2020-01-05 06:33] LABS: Anion Gap 11.8 mmol/L (6.8-13.8); BUN/Creatinine Ratio 20.5 (9.0-21.6); Calcium * 9.3 mg/dL (7.9-10.9); Carbon Dioxide 24.5 mmol/L (24-32.6); Estimated Creat Clear 45.4; Potassium 4.3 mmol/L (3.4-4.6)
[2020-01-05] MEDS: FELODIPINE 5 MG TAB.SR.24H PO SCH (08:42)
[2020-01-05] MEDS: DOCUSATE SODIUM 100 MG CAPSULE PO SCH (08:42)
[2020-01-05] MEDS: FENOFIBRATE,MICRONIZED 134 MG CAPSULE PO SCH (08:42)
[2020-01-05] MEDS: FOLIC ACID 1 MG TABLET PO SCH (08:42)
[2020-01-05] MEDS: PANTOPRAZOLE SODIUM 40 MG in NORMAL SALINE 100 ML IV SCH (08:43)
[2020-01-05] MEDS: LISINOPRIL 10 MG TABLET PO SCH (08:43)
--- NOTE | 2020-01-05 08:59 | PN ---
Subjective - Date and Time Seen Date: 01/05/20 Time: 08:54 Subjective Narrative: I am comfortable. Objective Objective Narrative: 84-year-old female status post left hemiarthroplasty of the left hip to repair a left femoral neck fracture postop day #1 was evaluated at bedside and was found to be afebrile and in no acute distress. Patient appears to be comfortable and reports adequate control of her pain. As ordered by Ortho she started PT this morning and tolerated really well, we got a good report from the physical therapist. She is allowed to bear weight on the involved side as tolerated. Postop labs demonstrate a decrease in her hemoglobin of 2 g but it is stable for now, we will just monitor. Her renal function has returned to her baseline with IV hydration and increase oral fluid intake during the hospitalization. The patient looks well and she reports an uneventful and comfortable postop. therefore we will follow-up with Ortho in order to determine discharge. In the meantime complex case manager are arranging for home health but also includes physical therapy. - Review of Systems Generalized/Overall Review: Reports: No Symptoms Reported EENTM: Reports: No Symptoms Reported Respiratory: Reports: No Symptoms Reported Cardiac: Reports: No Symptoms Reported Abdominal: Reports: No Symptoms Reported Genitourinary Symptoms: Reports: No Symptoms Reported Musculoskeletal Complaints: Reports: Joint Pain Neurological: Reports: No Symptoms Reported Skin: Reports: No Symptoms Reported Endocrine: Reports: No Symptoms Reported - Vitals Vitals: Last Vital Signs Temp 36.5 C 01/05/20 06:18 Pulse 78 01/05/20 08:43 Resp 16 01/05/20 06:18 BP 134/63 01/05/20 08:43 Pulse Ox 98 01/05/20 06:18 - Abnormal Lab Findings Abnormal Lab Findings: Abnormal Lab Results 01/05/20 01/05/20 Range/Units 06:23 06:23 RBC 3.27 L (4.2-5.4) M/mm3 Hgb 10.2 L (12.5-16.0) gm/dL Hct 31.7 L (37.0-47.0) % MCH 31.2 H (27-31) pg Random Glucose 111 H (70-110) mg/dL - Exam Constitutional: Present: Alert, Oriented x3, Cooperative, Well developed, Well nourished, No distress, Elderly ENT Exam: Present: normal ENT inspection, hearing grossly normal, pharynx normal, TMs normal Neck: Present: non-tender, full range of motion, supple, normal inspection, trachea midline Breasts: Present: Exam deferred, Nontender Respiratory: Present: chest non-tender, lungs clear, normal breath sounds, no respiratory distress, no accessory muscle use Cardiovascular/Chest: Present: normal peripheral pulses, regular rate, rhythm, no chest tenderness, no edema, no gallop, no JVD, no murmur, no rub Abdomen: Present: Normal bowel sounds, soft, nontender, nondistended, no rebound tenderness, no hepatospenomegaly, no masses, obese /Rectal: Present: Exam deferred Extremity: Present: no pedal edema, no calf tenderness, other - Left hip covered by dry and clean dressing, there are no signs of infection or bleeding. 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 tested, normal cerebellar test, no motor/sensory deficits, alert, normal mood/affect Appearance: Present: appropriate appearance, appropriate insight, neat, no memory impairment Eye contact: Present: cooperative, good eye contact, normal speech Thoughts: Present: normal thought pattern, no apparent hallucination Cauti Physician Documentation - Urinary Catheter Management 16 F Date of Insertion: 01/04/20 Time of Insertion: 06:20 Assessment/Plan - Problems/Diagnosis (1) Left displaced femoral neck fracture Problem: Acute (2) Hip fracture, left Problem: Acute Qualifiers: Encounter type: initial encounter Fracture type: closed Qualified Code(s): S72.002A - Fracture of unspecified part of neck of left femur, initial encounter for closed fracture (3) Hypothyroidism Problem: Chronic Qualifiers: Hypothyroidism type: acquired Qualified Code(s): E03.9 - Hypothyroidism, unspecified (4) Hypertension Problem: Chronic Qualifiers: Hypertension type: essential hypertension Qualified Code(s): I10 - Essential (primary) hypertension (5) Rheumatoid arthritis Problem: Chronic Qualifiers: Rheumatoid arthritis location: multiple sites Rheumatoid factor presence: unspecified presence Qualified Code(s): M06.9 - Rheumatoid arthritis, unspecified (6) Status post total knee replacement, bilateral Problem: Chronic (7) Macular degeneration, bilateral Problem: Chronic Qualifiers: Macular degeneration type: unspecified type Qualified Code(s): H35.30 - Unspecified macular degeneration (8) Status post hip hemiarthroplasty Problem: Acute
[2020-01-05] MEDS ORDERED: ENOXAPARIN SODIUM 40 MG/0.4 ML SYRG SC SCH (12:21)
--- NOTE | 2020-01-05 15:32 | PN ---
Subjective - Date and Time Seen Date: 01/05/20 Time: 07:35 Subjective Narrative: Patient is doing well postop day 1 status post left hip hemiarthroplasty. She rates her pain at a minimal at rest, mild increase with weightbearing activities. She has no other significant concerns acutely. She notes no other modifying or exacerbating factors. She has no other radiating symptoms. She otherwise states she has been up and ambulated without significant complication. Patient feels as though she could be discharged home without significant complication and wishes to have home health. Objective - Vitals Vitals: Last Vital Signs Temp 36.7 C 01/05/20 10:04 Pulse 80 01/05/20 10:04 Resp 16 01/05/20 10:04 BP 128/59 01/05/20 10:04 Pulse Ox 93 01/05/20 10:04 - Abnormal Lab Findings Abnormal Lab Findings: Abnormal Lab Results 01/05/20 01/05/20 Range/Units 06:23 06:23 RBC 3.27 L (4.2-5.4) M/mm3 Hgb 10.2 L (12.5-16.0) gm/dL Hct 31.7 L (37.0-47.0) % MCH 31.2 H (27-31) pg Random Glucose 111 H (70-110) mg/dL - Exam Constitutional: Present: Alert, Cooperative, No distress Respiratory: Present: no respiratory distress Extremity: Present: other - LUE--> dressing in place clean/dry/intact, sensation intact light touch, distal capillary refill brisk, 5/5 plantar flexion dorsiflexion ankle, diffuse tenderness about the left hip Skin Exam: Present: normal color, warm/dry Appearance: Present: appropriate appearance Eye contact: Present: cooperative Thoughts: Present: normal thought pattern Cauti Physician Documentation - Urinary Catheter Management 16 F Date of Insertion: 01/04/20 Time of Insertion: 06:20 Assessment/Plan Plan Narrative: -84-year-old female postop day 1 status post left hemiarthroplasty due to left femoral neck fracture -Weightbearing as tolerated, assistive device PRN, anterior precautions -PT/OT progress as tolerated, per protocol -DVT prophylaxis: Lovenox for 7 days followed by 325 mg aspirin daily for 6 weeks -P.o. diet as tolerated -Pain medication PRN -Follow-up with orthopedic outpatient clinic at 2 weeks postop -Contain pernio dressing in place until follow-up -Disposition discharge home with home health care for PT and wound monitoring, discharged per medicine team, medicine team's recommendations for chronic medical conditions - Problems/Diagnosis (1) Hip fracture, left Problem: Acute Qualifiers: Encounter type: initial encounter Fracture type: closed Qualified Code(s): S72.002A - Fracture of unspecified part of neck of left femur, initial encounter for closed fracture
--- NOTE | 2020-01-05 16:25 | DS ---
(1) Left displaced femoral neck fracture Problem: Acute (2) Hip fracture, left Problem: Acute Qualifiers: Encounter type: initial encounter Fracture type: closed Qualified Code(s): S72.002A - Fracture of unspecified part of neck of left femur, initial encounter for closed fracture (3) Hypothyroidism Problem: Chronic Qualifiers: Hypothyroidism type: acquired Qualified Code(s): E03.9 - Hypothyroidism, unspecified (4) Hypertension Problem: Chronic Qualifiers: Hypertension type: essential hypertension Qualified Code(s): I10 - Essential (primary) hypertension (5) Rheumatoid arthritis Problem: Chronic Qualifiers: Rheumatoid arthritis location: multiple sites Rheumatoid factor presence: unspecified presence Qualified Code(s): M06.9 - Rheumatoid arthritis, unspecified (6) Status post total knee replacement, bilateral Problem: Chronic (7) Macular degeneration, bilateral Problem: Chronic Qualifiers: Macular degeneration type: unspecified type Qualified Code(s): H35.30 - Unspecified macular degeneration (8) Status post hip hemiarthroplasty Problem: Acute Date of Discharge:: 01/05/20 Hospital Course: 84-year-old female admitted for a left femoral neck fracture underwent a successful left hemiarthroplasty and has had an uneventful postoperative course. Patient tolerated physical therapy without any issues and has been cleared for discharge by the orthopedic surgeon with 6 weeks of anticoagulation and physical therapy at home. Her postoperative hemoglobin revealed a mild postop anemia which is expected with orthopedic surgery will reevaluate this with follow-up labs in a few weeks. In the meantime the patient will be instructed to continue taking her routine medications and to follow-up with the orthopedic surgeon in 2 weeks. Patient will also be ordered to undergo follow- up CBC for reevaluation of her hemoglobin levels in 1 week and to follow-up with me in the internal medicine clinic. She will be discharged with home health services with physical therapy. She will also be provided with a prescription for pain medications and anticoagulation with Lovenox for 7 days and 6 weeks of p.o. aspirin as ordered by Ortho. Patient will be in need of home health services with nursing to manage medications and to monitor the patient's blood pressure and other vitals during her physical therapy and she will also need physical therapy in order to assist with ambulation as she feels especially given her limited weightbearing. The need for home health care skilled services is directly related to the time spent [id number] with the patient. Procedures Performed: see notes below - Left hemiarthroplasty List Procedures: Left hemiarthroplasty Results and Findings: Lab Pending Results 01/04/20 05:35: WBC 10.7 H, RBC 3.87 L, Hgb 12.1 L, Hct 37.1, MCV 95.9, MCH 31.3 H, MCHC 32.6, RDW 13.4, Plt Count 359, MPV 10.0, Immature Gran % (Auto) 1.40 H, Immature Gran # (Auto) 0.15 H, Neutrophils % 74.1, Lymphocytes % 16.5 L, Monocytes % 6.7, Eosinophils % 1.0, Basophils % 0.3, Nucleated RBC % 0.0, Neutrophils # 7.9 H, Lymphocytes # 1.77, Monocytes # 0.7, Eosinophils # 0.1, Absolute Basophils 0.0 01/04/20 05:35: Sodium 140, Plasma Sodium 141, Potassium 3.8, Chloride 107 H, Carbon Dioxide 24.6, Anion Gap 12.2, BUN 22, Creatinine 1.01, Est GFR (Non-Af Amer) 56 L D, BUN/Creatinine Ratio 21.8 H, Random Glucose 145 H, Calcium 9.9, Calcium Adj for Albumin 9.8, Total Bilirubin 0.3, AST 25, ALT 35, Alkaline Phosphatase 61, Total Protein 6.9, Albumin 3.7 01/04/20 06:57: SARS-CoV-2 (PCR) Not detected 01/04/20 12:52: Pathology Specimen Spec to path 01/05/20 06:23: WBC 9.7, RBC 3.27 L, Hgb 10.2 L, Hct 31.7 L, MCV 96.9, MCH 31.2 H, MCHC 32.2, RDW 13.5, Plt Count 286, MPV 9.8 01/05/20 06:23: Sodium 138, Plasma Sodium 138, Potassium 4.3, Chloride 106, Carbon Dioxide 24.5, Anion Gap 11.8, BUN 17, Creatinine 0.83, Est GFR (Non-Af Amer) 70 D, BUN/Creatinine Ratio 20.5, Random Glucose 111 H, Calcium 9.3 Discharge Location: Home Disposition: [facility] Home Health Agency: [facility] Home Health Condition: Good Face to Face Encounter completed per [facility] Guidelines: Yes Discharge Activity: Weight bearing Discharge Diet: General/regular food Detention Therapy: Physical Therapy Problem Oriented Discharge Instructions to Patient/Family: Partial Hip Replacement Additional Patient Instructions (free text): [facility] new, please call and fax discharge orders to them. Follow up Orthopedic [facility] office appointment on FridayJanuary 18 at 9:45am. Follow up with Dr. Camacho January 13 at 1:45 p.m. Ortho Instructions: -Weightbearing as tolerated, assistive device PRN, anterior precautions -PT/OT progress as tolerated, per protocol -DVT prophylaxis: Lovenox for 7 days followed by 325 mg aspirin daily for 6 weeks -Pain medication PRN -Follow-up with orthopedic outpatient clinic at 2 weeks postop Done -Contain pernio dressing in place until follow-up, do not remove -Disposition discharge home with home health care for PT and wound monitoring Prescriptions (Any new or edited meds): Aspirin 325 mg PO DAILY 45 Days #30 tab Transmission Status: Pending to [facility] #[id number] Enoxaparin Sodium [Lovenox] 40 mg SQ DAILY #7 ml Transmission Status: Pending to [facility] #[id number] HYDROcodone/ACETAMINOPHEN [[place] 5-325] 1 ea PO Q6H PRN #30 tab PRN Reason: Moderate Pain (Pain Scale 4-6) Transmission Status: Received by [facility] #[id number] Complete Home Medications List: Complete Home Medication List: folic acid 1 mg tablet 1 mg PO DAILY #90 tab 01/30/18 methotrexate sodium 2.5 mg tablet 7.5 mg PO Q7D tab 04/27/18 felodipine 10 mg tablet,extended release 24 hr 10 mg PO DAILY #90 tab 12/13/19 fenofibrate nanocrystallized 145 mg tablet 145 mg PO DAILY #90 tab 12/13/19 levothyroxine 50 mcg tablet 50 mcg PO DAILY #90 tab 12/13/19 lisinopril 10 mg tablet 10 mg PO DAILY #90 tab 12/13/19 Bimatoprost [Lumigan 0.01% Ophthalmic Solution] 1 drp OPHTHALMIC (EYE) HS 01/04/20 Aspirin 325 mg PO DAILY 45 Days #30 tab 01/05/20 Enoxaparin Sodium [Lovenox] 40 mg SQ DAILY #7 ml 01/05/20 HYDROcodone/ACETAMINOPHEN [[place] 5-325] 1 ea PO Q6H PRN #30 tab 01/05/20 Forms: Patient Portal Registration
[2020-01-05 17:18] VITALS: BP 126/65
[2020-01-07] MEDS ORDERED: METHOTREXATE SODIUM 2.5 MG TABLET PO SCH (09:15)
== END 2020-01-05 17:03 | disposition home health service (06) | DRG 470 ==
LOC: ER 04:43 → MS 06:58
PROVIDERS: ADMIT Family Medicine; ATTEND Family Medicine
DX: N32.81 Overactive bladder; M06.9 Rheumatoid arthritis, unspecified; Z85.3 Personal history of malignant neoplasm of breast; E78.5 Hyperlipidemia, unspecified; W17.89XA Other fall from one level to another, initial encounter; H35.30 Unspecified macular degeneration; Y92.012 Bathroom of single-family (private) house as the place of occurrence of the external cause; S72.142A Displaced intertrochanteric fracture of left femur, initial encounter for closed fracture; I10 Essential (primary) hypertension
CPT/HCPCS: 36415; 71010; 71045; 73502; 80048; 80053; 85025; 85027; 88305; 88311; 88888; 93005; 96374; 96375; 96376; 97110; 97116; 97162; 97165; 97530; 97535; 99284; C9803; J2405